=== PATIENT | female | born 1955 | race Caucasian/White ===

== ENCOUNTER 2017-06-02 10:45 | Emergency (ER) | payer OTHER ==
--- NOTE | 2017-06-02 11:15 | EDM.PDOC ---
ED HPI GENERAL MEDICAL PROBLEM - General Chief Complaint: Skin Complaint Stated Complaint: INFECTION Time Seen by Provider: 06/02/17 10:55 Source of Information: Reports: Patient History Limitations: Reports: No Limitations - History of Present Illness INITIAL COMMENTS - FREE TEXT/NARRATIVE: HISTORY AND PHYSICAL: History of present illness: Patient is a 62-year-old female that presents to the emergency room with complaints of a skin infection. States she fell onto her left side on Sunday, , resulting in an abrasion to her left forearm. Reports she did not lose consciousness with the fall. She is also concerned of a punch biopsy site to her left distal popliteal area by her ethnographer "checking for skin cancer". Reports that she usually takes amoxicillin for dental work, stating "I should have taken an antibiotic for these two skin issues as I don't heal well with the medicines I'm on for my RA". Reports she has been using baking soda soaks at home. Patient denies any fever or chills. Able to move all extremities without pain or difficulty. History of rheumatoid arthritis and psoriasis. Review of systems: As per history of present illness and below otherwise all systems reviewed and negative. Past medical history: As per history of present illness and as reviewed below otherwise noncontributory. Surgical history: As per history of present illness and as reviewed below otherwise noncontributory. Social history: No reported history of drug or alcohol abuse. Family history: As per history of present illness and as reviewed below otherwise noncontributory. Physical exam: Gen.: Nontoxic-appearing 62-year-old female. Able to speak in full sentences without shortness of breath. Answers questions appropriately. Alert and oriented. HEENT: Atraumatic, normocephalic, pupils reactive, negative for conjunctival pallor or scleral icterus, mucous membranes moist, throat clear, neck supple, nontender, trachea midline. Lungs: Clear to auscultation, breath sounds equal bilaterally, chest nontender. Heart: S1S2, regular, negative for clicks, rubs, or JVD. Abdomen: Soft, nondistended, nontender. Negative for masses or hepatosplenomegaly. Negative for costovertebral tenderness. Pelvis: Stable nontender. Genitourinary: Deferred. Rectal: Deferred. Skin: 2 circular abrasions noted, measuring approximately 3 cm diameter each, to left forearm with mild erythema surrounding them, no drainage noted. Punch biopsy site noted to left popliteal area with mild erythema noted, approximately 1 cm in diameter, no drainage noted. Extremities: Atraumatic, negative for cords or calf pain. Neurovascular unremarkable. Neuro: Awake, alert, oriented. Cranial nerves II through XII unremarkable. Cerebellum unremarkable. Motor and sensory unremarkable throughout. Exam nonfocal. Diagnostics: [] Therapeutics: Ice Impression: Cellulitis Definitive disposition and diagnosis as appropriate pending reevaluation and review of above. Onset Date: 05/28/17 Location: Reports: Upper Extremity, Left, Lower Extremity, Left - Related Data Allergies Allergy/AdvReac Type Severity Reaction Status Date / Time ceftriaxone Allergy Pain Verified 06/02/17 11:09 Sulfa (Sulfonamide Allergy Other Verified 06/02/17 11:09 Antibiotics) tramadol Allergy Hypertensio Verified 06/02/17 11:09 n Home Meds: Home Meds predniSONE [Prednisone] 1 tab PO DAILY 06/17/16 [History] Hydroxychloroquine Sulfate [Plaquenil] 200 mg PO BID 06/02/17 [History] Leflunomide 10 mg PO DAILY 06/02/17 [History] Lisinopril [Prinivil] 2.5 mg PO DAILY 06/02/17 [History] Past Medical History Genitourinary History: Reports: UTI, 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: Musculoskeletal History: Reports: Fibromyalgia, RA - Infectious Disease History Infectious Disease History: Reports: Chicken Pox, Measles, Mumps - Past Surgical History Female Surgical History: Reports: Section, Hysterectomy Musculoskeletal Surgical History: Reports: Knee Replacement Social & Family History - Family History Family Medical History: Noncontributory - Tobacco Use Smoking Status *Q: Never Smoker - Caffeine Use Caffeine Use: Reports: Coffee, Tea - Recreational Drug Use Recreational Drug Use: No ED ROS GENERAL - Review of Systems Review Of Systems: ROS reveals no pertinent complaints other than HPI. ED EXAM, SKIN/RASH Exam: See Below (See dictation) Departure - Departure Time of Disposition: 11:16 Disposition: Home, Self-Care 01 Condition: Good Clinical Impression: Cellulitis Qualifiers: Site of cellulitis: extremity Site of cellulitis of extremity: upper extremity Laterality: left Qualified Code(s): L03.114 - Cellulitis of left upper limb - Discharge Information Referrals: Colin Gonzalez MD [Primary Care Provider] - Additional Instructions: The following information is given to patients seen in the emergency department who are being discharged to home. This information is to outline your options for follow-up care. We provide all patients seen in our emergency department with a follow-up referral. The need for follow-up, as well as the timing and circumstances, are variable depending upon the specifics of your emergency department visit. If you don't have a primary care physician on staff, we will provide you with a referral. We always advise you to contact your personal physician following an emergency department visit to inform them of the circumstance of the visit and for follow-up with them and/or the need for any referrals to a consulting specialist. The emergency department will also refer you to a specialist when appropriate. This referral assures that you have the opportunity for follow-up care with a specialist. All of these measure are taken in an effort to provide you with optimal care, which includes your follow-up. Under all circumstances we always encourage you to contact your private physician who remains a resource for coordinating your care. When calling for follow-up care, please make the office aware that this follow-up is from your recent emergency room visit. If for any reason you are refused follow-up, please contact the emergency department at and asked to speak to the emergency department charge nurse. Talat [facility] [address] [place] [id number] 1. Please take your Amoxicillin as prescribed. 2. Follow-up with your primary care provider in the next 1-2 days. Return to the ED as needed as discussed.
[2017-06-02 11:32] VITALS: BP 139/83
== END 2017-06-02 11:28 | disposition home or self-care (01) ==
LOC: MW.ED 10:45
DX: L03.114 Cellulitis of left upper limb (principal); S50.812A Abrasion of left forearm, initial encounter; Z88.2 Allergy status to sulfonamides; Z88.5 Allergy status to narcotic agent; Z88.1 Allergy status to other antibiotic agents; Z79.899 Other long term (current) drug therapy; Z87.440 Personal history of urinary (tract) infections; Z90.710 Acquired absence of both cervix and uterus; Z96.659 Presence of unspecified artificial knee joint; W19.XXXA Unspecified fall, initial encounter
CPT/HCPCS: 99282

== ENCOUNTER 2017-06-03 04:09 | Emergency (ER) | payer OTHER ==
[2017-06-03] MEDS ORDERED: Ondansetron 4 MG/2 ML SDV IVPUSH ONE (04:27)
[2017-06-03] MEDS ORDERED: Ketorolac 30 MG/ML SDV IVPUSH ONE (04:27)
[2017-06-03 05:11] LABS: CHLORIDE,CL 107 mmol/L (98-110); SODIUM,NA 140 mmol/L (136-146)
--- NOTE | 2017-06-03 05:50 | EDM.PDOC ---
ED HPI GENERAL MEDICAL PROBLEM - General Chief Complaint: General Stated Complaint: INFECTION ON LEFT ELBOW Time Seen by Provider: 06/03/17 05:52 - History of Present Illness INITIAL COMMENTS - FREE TEXT/NARRATIVE: HISTORY AND PHYSICAL: History of present illness: Patient's a [id number] female with a history of rheumatoid arthritis and fibromyalgia who returns with a concern of pain was seen recently after fall on 05/28 and put on amoxicillin for possible cellulitis her most recent visit after that fall on 05/28 was yesterday on 06/02. Review of systems: As per history of present illness and below otherwise all systems reviewed and negative. Past medical history: As per history of present illness and as reviewed below otherwise noncontributory. Surgical history: As per history of present illness and as reviewed below otherwise noncontributory. Social history: No reported history of drug or alcohol abuse. Family history: As per history of present illness and as reviewed below otherwise noncontributory. Physical exam: HEENT: Atraumatic, normocephalic, pupils reactive, negative for conjunctival pallor or scleral icterus, mucous membranes moist, throat clear, neck supple, nontender, trachea midline. Lungs: Clear to auscultation, breath sounds equal bilaterally, chest nontender. Heart: S1S2, regular, negative for clicks, rubs, or JVD. Abdomen: Soft, nondistended, nontender. Negative for masses or hepatosplenomegaly. Negative for costovertebral tenderness. Pelvis: Stable nontender. Genitourinary: Deferred. Rectal: Deferred. Extremities: Patient is some swelling of her left elbow with ecchymosis and a minor abrasion this is not erythematous or particularly warm range of motion is limited secondary to pain neurovascular exams unremarkable Neuro: Awake, alert, oriented. Cranial nerves II through XII unremarkable. Cerebellum unremarkable. Motor and sensory unremarkable throughout. Exam nonfocal. Diagnostics: CBC CMP CT left elbow Therapeutics: Sling Impression: #1 left elbow pain #2 history of fall #3 history of rheumatoid arthritis/ fibromyalgia #4 rule out occult radial head fracture #5 rule out early superficial cellulitis Definitive disposition and diagnosis as appropriate pending reevaluation and review of above. Generalized Pain Score (Numeric/FACES): 10 - Related Data Allergies Allergy/AdvReac Type Severity Reaction Status Date / Time adalimumab [From Humira] Allergy Other Verified 06/03/17 04:27 amitriptyline Allergy Cannot Verified 06/03/17 04:27 Remember amlodipine [From Tribenzor] Allergy Cannot Verified 06/03/17 04:27 Remember cefaclor [From Ceclor] Allergy Hives Verified 06/03/17 04:27 ceftriaxone Allergy Pain Verified 06/02/17 11:09 codeine Allergy Hypertensio Verified 06/03/17 04:27 n doxycycline Allergy Hives Verified 06/03/17 04:27 etanercept [From Enbrel] Allergy Other Verified 06/03/17 04:27 gabapentin Allergy Hives Verified 06/03/17 04:27 hydrochlorothiazide Allergy Cannot Verified 06/03/17 04:27 [From Tribenzor] Remember hydroxychloroquine Allergy Cannot Verified 06/03/17 04:27 Remember leflunomide [From Arava] Allergy Cannot Verified 06/03/17 04:27 Remember lovastatin Allergy Cannot Verified 06/03/17 04:27 Remember olmesartan [From Tribenzor] Allergy Cannot Verified 06/03/17 04:27 Remember omeprazole Allergy Cannot Verified 06/03/17 04:27 Remember oxycodone Allergy Hypertensio Verified 06/03/17 04:27 n pantoprazole [From Protonix] Allergy Cannot Verified 06/03/17 04:27 Remember pravastatin Allergy Cannot Verified 06/03/17 04:27 Remember propoxyphene [From Darvon] Allergy Cannot Verified 06/03/17 04:27 Remember Sulfa (Sulfonamide Allergy Hives Verified 06/03/17 04:27 Antibiotics) tramadol Allergy Hypertensio Verified 06/02/17 11:09 n ustekinumab [From Stelara] Allergy Cannot Verified 06/03/17 04:27 Remember Home Meds: Home Meds predniSONE [Prednisone] 17.5 mg PO ASDIRECTED 06/17/16 [History] Hydroxychloroquine Sulfate [Plaquenil] 200 mg PO BID 06/02/17 [History] Leflunomide 10 mg PO DAILY 06/02/17 [History] Lisinopril [Prinivil] 10 mg PO DAILY 06/02/17 [History] Albuterol [Ventolin HFA] 2 puff INH Q4HR 06/03/17 [History] Amoxicillin 500 mg PO DAILY 06/03/17 [History] Benzonatate [Tessalon Perle] 200 mg PO TID 06/03/17 [History] Cetirizine [ZyrTEC] 10 mg PO DAILY PRN 06/03/17 [History] Cholecalciferol (Vitamin D3) [Vitamin D3] 5,000 units PO DAILY 06/03/17 [History ] Codeine Sulfate 0 mg PO Q4HR PRN 06/03/17 [History] Famotidine 40 mg PO BID 06/03/17 [History] Folic Acid 1 mg PO BID 06/03/17 [History] Ipratropium [Atrovent 0.06% Nasal Randolph] 2 spray INH TID 06/03/17 [History] Lansoprazole [Prevacid] 30 mg PO DAILY 06/03/17 [History] Loratadine [Claritin] 10 mg PO DAILY PRN 06/03/17 [History] Past Medical History HEENT History: Reports: Impaired Vision Other HEENT History: wears glasses Cardiovascular History: Reports: Hypertension Gastrointestinal History: Reports: None Genitourinary History: Reports: UTI, Recurrent 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: Reports: Musculoskeletal History: Reports: Fibromyalgia, RA Immunologic History: Reports: Immunosuppression Other Oncologic History: never been diagnosed with cancer but reports right breast biopsy and left leg biopsy Dermatologic History: Reports: Psoriasis - Infectious Disease History Infectious Disease History: Reports: Chicken Pox, Measles, Mumps - Past Surgical History Other HEENT Surgeries/Procedures: nasal surgery Cardiovascular Surgical History: Reports: None GI Surgical History: Reports: Appendectomy Female Surgical History: Reports: Section, Hysterectomy, Tubal Ligation Musculoskeletal Surgical History: Reports: Knee Replacement Other Musculoskeletal Surgeries/Procedures:: fused ankle, left Oncologic Surgical History: Reports: None Social & Family History - Family History Family Medical History: Noncontributory - Tobacco Use Smoking Status *Q: Never Smoker Second Hand Smoke Exposure: No - Caffeine Use Caffeine Use: Reports: Coffee Caffeine Use Comment: 1-2cups/day - Recreational Drug Use Recreational Drug Use: No ED ROS GENERAL - Review of Systems Review Of Systems: ROS reveals no pertinent complaints other than HPI. ED EXAM, GENERAL - Physical Exam Exam: See Below (See dictation) Course - Vital Signs Text/Narrative:: I discussed with patient possible occult radial head fracture I discussed with patient her extensive list of allergies and her recent Rx with amoxicillin for possible superficial cellulitis and the need for close follow-up and monitoring I discussed with patient her history of rheumatoid arthritis/fibromyalgia and the difficulty with pain management. Patient will be treated in a sling so as to mobilize yet still be able to monitor any evidence of infection or increased swelling redness erythema warmth as discussed she'll be given orthopedic surgery follow-up with on Sunday she is to follow-up with her primary medical doctor ASP also was discussed and return as needed as discussed Last Recorded V/S: Last Vital Signs Temp 36.1 C 06/03/17 04:14 Pulse 94 06/03/17 04:14 Resp 19 06/03/17 04:14 BP 182/101 H 06/03/17 04:14 Pulse Ox 97 06/03/17 04:14 - Orders/Labs/Meds Orders: Active Orders 24 hr Category Date Time Status Elbow wo Cont Lt [CT] Stat Exams 06/03/17 04:26 Taken Labs: Laboratory Tests 06/03/17 06/03/17 Range/Units 04:40 04:40 WBC 10.06 (4.0-11.0) K/uL RBC 4.56 (4.30-5.90) M/uL Hgb 14.9 (12.0-16.0) g/dL Hct 45.4 (36.0-46.0) % MCV 99.6 H (80.0-98.0) fL MCH 32.7 H (27.0-32.0) pg MCHC 32.8 (31.0-37.0) g/dL RDW Std Deviation 49.4 (28.0-62.0) fl RDW Coeff of Deedee 14 (11.0-15.0) % Plt Count 291 (150-400) K/uL MPV 9.40 (7.40-12.00) fL Neut % (Auto) 57.0 (48.0-80.0) % Lymph % (Auto) 32.7 (16.0-40.0) % Davison % (Auto) 8.3 (0.0-15.0) % Eos % (Auto) 1.7 (0.0-7.0) % Baso % (Auto) 0.3 (0.0-1.5) % Neut # (Auto) 5.7 (1.4-5.7) K/uL Lymph # (Auto) 3.3 H (0.6-2.4) K/uL Davison # (Auto) 0.8 (0.0-0.8) K/uL Eos # (Auto) 0.2 (0.0-0.7) K/uL Baso # (Auto) 0.0 (0.0-0.1) K/uL Nucleated RBC % 0.0 /100WBC Nucleated RBCs # 0 K/uL Sodium 140 (136-146) mmol/L Potassium 4.1 (3.5-5.1) mmol/L Chloride 107 (98-110) mmol/L Carbon Dioxide 20 L (21-31) mmol/L BUN 11 (6.0-23.0) mg/dL Creatinine 0.8 (0.6-1.5) mg/dL Est Cr Clr Drug Dosing 67.29 mL/min Estimated GFR (MDRD) > 60.0 ml/min Glucose 133 H (60-110) mg/dL Calcium 9.4 (8.8-10.8) mg/dL Total Bilirubin 0.2 (0.1-1.5) mg/dL AST 27 (5-40) IU/L ALT 27 (8-54) IU/L Alkaline Phosphatase 191 H (40-150) Total Protein 7.3 (6.0-8.0) g/dL Albumin 3.6 (3.4-4.8) g/dL Globulin 3.7 H (2.0-3.5) g/dL Albumin/Globulin Ratio 1.0 L (1.3-2.8) Meds: Medications Discontinued Medications Generic Name Dose Route Start Last Admin Trade Name Brayden PRN Reason Stop Dose Admin Ketorolac Tromethamine 30 mg 06/03/17 04:27 06/03/17 04:45 Toradol IVPUSH 06/03/17 04:28 30 mg ONETIME ONE Administration Ondansetron HCl 4 mg 06/03/17 04:27 06/03/17 04:43 Zofran IVPUSH 06/03/17 04:28 4 mg ONETIME ONE Administration Departure - Departure Time of Disposition: 05:51 Disposition: Home, Self-Care 01 Condition: Good Clinical Impression: Elbow injury - Discharge Information Referrals: PCP,None [Primary Care Provider] - Additional Instructions: The following information is given to patients seen in the emergency department who are being discharged to home. This information is to outline your options for follow-up care. We provide all patients seen in our emergency department with a follow-up referral. The need for follow-up, as well as the timing and circumstances, are variable depending upon the specifics of your emergency department visit. If you don't have a primary care physician on staff, we will provide you with a referral. We always advise you to contact your personal physician following an emergency department visit to inform them of the circumstance of the visit and for follow-up with them and/or the need for any referrals to a consulting specialist. The emergency department will also refer you to a specialist when appropriate. This referral assures that you have the opportunity for followup care with a specialist. All of these measure are taken in an effort to provide you with optimal care, which includes your followup. Under all circumstances we always encourage you to contact your private physician who remains a resource for coordinating your care. When calling for followup care, please make the office aware that this follow-up is from your recent emergency room visit. If for any reason you are refused follow-up, please contact the [facility] emergency department at and asked to speak to the emergency department charge nurse. [facility] Specialty Care - Orthopedic Clinic Professional [address], [address] [place] [address] Continue current medications sling as directed follow-up primary medical doctor HILDA and orthopedic clinic above is discussed return as needed as discussed - My Orders Last 24 Hours: My Active Orders 06/03/17 04:26 Elbow wo Cont Lt [CT] Stat - Assessment/Plan Last 24 Hours: My Active Orders 06/03/17 04:26 Elbow wo Cont Lt [CT] Stat
[2017-06-03 06:09] VITALS: BP 147/76
--- NOTE | 2017-06-05 16:14 | CT ---
EXAM DATE: 06/03/17 PATIENT'S AGE: 62 Patient: COLLIN BEVERLY Facility: [place], [place] Site . Site : [id number] Study: CT Extremity Left [id number] elbow-06/03/2017 5:21:29 AM Ordering Physician: Doctor Madrigal Final Report: Indication: Pain status post fall Technique: A noncontrast CT scan of the left elbow. Coronal and sagittal reformats were reviewed. Comparison: None available Findings: There is no evidence of an acute displaced fracture. There are degenerative changes in the elbow joint with joint space narrowing and osteophyte formation in all compartments. There is an elbow joint effusion with elevation of the anterior and posterior fat pads. There is soft tissue swelling along the dorsal aspect of the elbow and proximal forearm. Impression: No acute displaced fracture is seen. Degenerative changes. A joint effusion. If a radio- occult fracture is suspected, further evaluation with MRI should be considered. Dorsal soft tissue swelling. Dictated by Dino Hardin MD @ 06/03/2017 5:45:00 AM Dictated by: Dino Hardin MD @ 06/03/2017 05:45:05 (Electronic Signature) Report Signed by Proxy. YI
== END 2017-06-03 06:04 | disposition home or self-care (01) ==
LOC: MW.ED 04:09
DX: S50.02XA Contusion of left elbow, initial encounter (principal); S50.312A Abrasion of left elbow, initial encounter; I10 Essential (primary) hypertension; Z87.440 Personal history of urinary (tract) infections; Z90.49 Acquired absence of other specified parts of digestive tract; Z90.710 Acquired absence of both cervix and uterus; Z88.5 Allergy status to narcotic agent; Z88.1 Allergy status to other antibiotic agents; Z88.8 Allergy status to other drugs, medicaments and biological substances; Z88.2 Allergy status to sulfonamides; Z79.899 Other long term (current) drug therapy; Z87.39 Personal history of other diseases of the musculoskeletal system and connective tissue; W19.XXXA Unspecified fall, initial encounter
CPT/HCPCS: 36415; 73200; 80053; 85025; 96374; 96375; 99284; J1885; J2405; 99283

== ENCOUNTER 2018-02-07 13:07 | Emergency (ER) | payer OTHER ==
--- NOTE | 2018-02-07 13:59 | EDM.PDOC ---
ED HPI GENERAL MEDICAL PROBLEM - General Chief Complaint: Skin Complaint Stated Complaint: RIGHT FOOT BLISTERS Time Seen by Provider: 02/07/18 13:58 Source of Information: Reports: Patient History Limitations: Reports: No Limitations - History of Present Illness INITIAL COMMENTS - FREE TEXT/NARRATIVE: HISTORY AND PHYSICAL: History of present illness: Patient is a 63-year-old female who presents to the emergency room with complaints of blisterlike sores to her right. She states she noticed a few blisters to the foot on Sunday and has progressively gotten worse. She does see a firer automatic stoker for neck pustule or psoriasis. Told her firer automatic stoker on Sunday and exchanged photo for somewhat demented evaluation. She was placed on oral prednisone Sunday but has not noticed any. She re-spoke with her firer automatic stoker who states this appears to be a Shingles outbreak. States the pain is a sharp burning discomfort, localized to the blistered area. Denies any fever, chills, chest pain or shortness of breath. Denies any abdominal pain, nausea, vomiting, diarrhea or constipation. Patient is fully ambulatory without difficulty or deficits. Review of systems: As per history of present illness and below otherwise all systems reviewed and negative. Past medical history: As per history of present illness and as reviewed below otherwise noncontributory. Surgical history: As per history of present illness and as reviewed below otherwise noncontributory. Social history: No reported history of drug or alcohol abuse. Family history: As per history of present illness and as reviewed below otherwise noncontributory. Physical exam: General: Developed and well-nourished 63-year-old female. Alert and oriented. Nontoxic appearing and in no acute distress. HEENT: Atraumatic, normocephalic, pupils equal and reactive bilaterally, negative for conjunctival pallor or scleral icterus, mucous membranes moist, throat clear, neck supple, nontender, trachea midline. No drooling or trismus noted. No meningeal signs Lungs: Clear to auscultation, breath sounds equal bilaterally, chest nontender. Heart: S1S2, regular rate and rhythm without overt murmur Abdomen: Soft, nondistended, nontender. Negative for masses or hepatosplenomegaly. Negative for costovertebral tenderness. Pelvis: Stable nontender. Genitourinary: Deferred. Rectal: Deferred. Skin: Several blister like lesions noted to the oral surface of the right foot. Mild erythema noted around these blisters. No lesions or rashes noted. Extremities: Atraumatic, negative for cords or calf pain. Neurovascular unremarkable. Neuro: Awake, alert, oriented. Cranial nerves II through XII unremarkable. Cerebellum unremarkable. Motor and sensory unremarkable throughout. Exam nonfocal. Notes: A viral culture will be obtained from the pustular fluid. 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 She states she does have an appointment to see her on Sunday. Discussed signs and symptoms that would prompt her to come back to the emergency room or seek medical treatment such as but not limited to increased erythema, fever, and/or any new or worsening symptoms. Will place her on Acyclovir 3 times daily instead of the 5 times daily due to her multitude of health problems. She states she does have moderate to severe pain. She has multiple allergies to medications. She is willing to take some Tylenol with Codeine dispense 20, no refill. We did discuss her high blood pressure reading today. She declines a further workup or evaluation of this as she states that "it gets high when I'm not feeling well". She states she will follow up with her primary care provider Diagnostics: Viral [employer] Therapeutics: [] Impression: Shingles, right foot Plan: 1. Please take the acyclovir one tab 3 times daily 7 days. 2. Tylenol #3 as needed for pain. May cause drowsiness, so do not take while driving or needing to be functioning outside the house. 3. Continue to monitor the site or increased erythema or any of the other symptoms discussed. 4. Follow-up with your firer automatic stoker as we discussed. Turn to the ED as needed and as discussed. Definitive disposition and diagnosis as appropriate pending reevaluation and review of above. Duration: Day(s): Location: Reports: Lower Extremity, Right Right Feet Pain Score (Numeric/FACES): 9 - Related Data Allergies Allergy/AdvReac Type Severity Reaction Status Date / Time adalimumab [From Humira] Allergy Other Verified 02/07/18 13:58 amitriptyline Allergy Cannot Verified 02/07/18 13:58 Remember amlodipine [From Tribenzor] Allergy Cannot Verified 02/07/18 13:58 Remember cefaclor [From Ceclor] Allergy Hives Verified 02/07/18 13:58 ceftriaxone Allergy Pain Verified 02/07/18 13:58 codeine Allergy Hypertensio Verified 02/07/18 13:58 n doxycycline Allergy Hives Verified 02/07/18 13:58 etanercept [From Enbrel] Allergy Other Verified 02/07/18 13:58 gabapentin Allergy Hives Verified 02/07/18 13:58 hydrochlorothiazide Allergy Cannot Verified 02/07/18 13:58 [From Tribenzor] Remember hydroxychloroquine Allergy Cannot Verified 02/07/18 13:58 Remember leflunomide [From Arava] Allergy Cannot Verified 02/07/18 13:58 Remember lovastatin Allergy Cannot Verified 02/07/18 13:58 Remember olmesartan [From Tribenzor] Allergy Cannot Verified 02/07/18 13:58 Remember omeprazole Allergy Cannot Verified 02/07/18 13:58 Remember oxycodone Allergy Hypertensio Verified 02/07/18 13:58 n pantoprazole [From Protonix] Allergy Cannot Verified 02/07/18 13:58 Remember pravastatin Allergy Cannot Verified 02/07/18 13:58 Remember propoxyphene [From Darvon] Allergy Cannot Verified 02/07/18 13:58 Remember Sulfa (Sulfonamide Allergy Hives Verified 02/07/18 13:58 Antibiotics) tramadol Allergy Hypertensio Verified 02/07/18 13:58 n ustekinumab [From Stelara] Allergy Cannot Verified 02/07/18 13:58 Remember Home Meds: Home Meds predniSONE [Prednisone] 12.5 mg PO ASDIRECTED 06/17/16 [History] Hydroxychloroquine Sulfate [Plaquenil] 200 mg PO BID 06/02/17 [History] Leflunomide 10 mg PO DAILY 06/02/17 [History] Lisinopril [Prinivil] 10 mg PO DAILY 06/02/17 [History] Albuterol [Ventolin HFA] 2 puff INH Q4HR 06/03/17 [History] Amoxicillin 500 mg PO DAILY 06/03/17 [History] Benzonatate [Tessalon Perle] 200 mg PO TID 06/03/17 [History] Cetirizine [ZyrTEC] 10 mg PO DAILY PRN 06/03/17 [History] Cholecalciferol (Vitamin D3) [Vitamin D3] 5,000 units PO DAILY 06/03/17 [History ] Codeine Sulfate 0 mg PO Q4HR PRN 06/03/17 [History] Famotidine 40 mg PO BID 06/03/17 [History] Folic Acid 1 mg PO BID 06/03/17 [History] Ipratropium [Atrovent 0.06% Nasal [place]] 2 spray INH TID 06/03/17 [History] Lansoprazole [Prevacid] 30 mg PO DAILY 06/03/17 [History] Loratadine [Claritin] 10 mg PO DAILY PRN 06/03/17 [History] Dexlansoprazole [Dexilant] 30 mg PO DAILY 02/07/18 [History] Past Medical History HEENT History: Reports: Impaired Vision Other HEENT History: wears glasses Cardiovascular History: Reports: Hypertension Gastrointestinal History: Reports: None Genitourinary History: Reports: UTI, Recurrent 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: Musculoskeletal History: Reports: Fibromyalgia, RA Immunologic History: Reports: Immunosuppression Other Oncologic History: never been diagnosed with cancer but reports right breast biopsy and left leg biopsy Dermatologic History: Reports: Psoriasis - Infectious Disease History Infectious Disease History: Reports: Chicken Pox, Measles, Mumps - Past Surgical History Other HEENT Surgeries/Procedures: nasal surgery Cardiovascular Surgical History: Reports: None GI Surgical History: Reports: Appendectomy Female Surgical History: Reports: Section, Hysterectomy, Tubal Ligation Musculoskeletal Surgical History: Reports: Knee Replacement Other Musculoskeletal Surgeries/Procedures:: fused ankle, left Oncologic Surgical History: Reports: None Social & Family History - Family History Family Medical History: Noncontributory - Caffeine Use Caffeine Use: Reports: Coffee Caffeine Use Comment: 1-2cups/day ED ROS GENERAL - Review of Systems Review Of Systems: ROS reveals no pertinent complaints other than HPI. ED EXAM, SKIN/RASH Exam: See Below (See dictation) Course - Vital Signs Last Recorded V/S: Last Vital Signs Temp 97.6 F 02/07/18 13:50 Pulse 98 02/07/18 13:50 Resp 20 02/07/18 13:50 BP 195/111 H 02/07/18 13:50 Pulse Ox 94 L 02/07/18 13:50 - Orders/Labs/Meds Orders: Active Orders 24 hr Category Date Time Status VIRAL CULTURE, GENERAL Stat Lab 02/07/18 14:03 Ordered Departure - Departure Time of Disposition: 14:24 Disposition: Home, Self-Care 01 Clinical Impression: Shingles Qualifiers: Herpes zoster complications: without complications Qualified Code(s): B02.9 - Zoster without complications - Discharge Information Instructions: Shingles, [id number]-Ihck Referrals: Colin Gonzalez MD [Primary Care Provider] - Forms: ED Department Discharge Additional Instructions: The following information is given to patients seen in the emergency department who are being discharged to home. This information is to outline your options for follow-up care. We provide all patients seen in our emergency department with a follow-up referral. The need for follow-up, as well as the timing and circumstances, are variable depending upon the specifics of your emergency department visit. If you don't have a primary care physician on staff, we will provide you with a referral. We always advise you to contact your personal physician following an emergency department visit to inform them of the circumstance of the visit and for follow-up with them and/or the need for any referrals to a consulting specialist. The emergency department will also refer you to a specialist when appropriate. This referral assures that you have the opportunity for follow-up care with a specialist. All of these measure are taken in an effort to provide you with optimal care, which includes your follow-up. Under all circumstances we always encourage you to contact your private physician who remains a resource for coordinating your care. When calling for follow-up care, please make the office aware that this follow-up is from your recent emergency room visit. If for any reason you are refused follow-up, please contact the [facility] Emergency Department at and asked to speak to the emergency department charge nurse. [facility] Primary [facility] [address] [place] [id number] 1. Please take the acyclovir one tab 3 times daily 7 days. 2. Tylenol #3 as needed for pain. May cause drowsiness, so do not take while driving or needing to be functioning outside the house. 3. Continue to monitor the site or increased erythema or any of the other symptoms discussed. 4. Follow-up with your firer automatic stoker as we discussed. Turn to the ED as needed and as discussed. - My Orders Last 24 Hours: My Active Orders 02/07/18 14:03 VIRAL CULTURE, GENERAL Stat - Assessment/Plan Last 24 Hours: My Active Orders 02/07/18 14:03 VIRAL CULTURE, GENERAL Stat
[2018-02-07 14:38] VITALS: BP 154/86
== END 2018-02-07 14:35 | disposition home or self-care (01) ==
LOC: MW.ED 13:07
DX: B02.9 Zoster without complications (principal); I10 Essential (primary) hypertension; Z88.8 Allergy status to other drugs, medicaments and biological substances; Z88.1 Allergy status to other antibiotic agents; Z88.5 Allergy status to narcotic agent; Z88.2 Allergy status to sulfonamides; Z79.899 Other long term (current) drug therapy
CPT/HCPCS: 87252; 99283

== ENCOUNTER 2018-02-09 21:43 | Emergency (ER) | payer OTHER ==
[2018-02-09 22:23] VITALS: BP 155/103
--- NOTE | 2018-02-09 22:52 | EDM.PDOC ---
ED HPI GENERAL MEDICAL PROBLEM - General Chief Complaint: Skin Complaint Stated Complaint: SORES ON RIGHT FOOT Time Seen by Provider: 02/09/18 22:35 - History of Present Illness INITIAL COMMENTS - FREE TEXT/NARRATIVE: HISTORY AND PHYSICAL: History of present illness: The patient is a 63-year-old female who presents with persistent pain redness and no drainage from lesions noted on her right foot for which she was seen 2 days ago. At that point it was noted the patient has a history of pustular psoriasis which usually presents on the soles of her feet and this was an atypical location so the diagnosis of shingles was entertained and she was started on acyclovir and Tylenol with codeine. Patient has multiple allergies and has issues with pain medication and says that she cannot take most pain meds but she does not feel that the Tylenol with codeine is working. She said one of the lesions ruptured and fluid came out and she feels like the pain is originating at her lateral right foot and shooting up her leg. She has no systemic complaints of fever chills nausea or vomiting. She has had no injury to the area and no neurosensory changes in the foot. There is no streaking up the leg or calf pain or tenderness. Patient has an appointment with her preanalytics team lead on Sunday but because of the pain she is here for reevaluation. The patient says that most pain medication makes her blood pressure elevated. She says her blood pressure today is elevated because of the discomfort. 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 Review of systems: As per history of present illness and below otherwise all systems reviewed and negative. Past medical history: As per history of present illness and as reviewed below otherwise noncontributory. Surgical history: As per history of present illness and as reviewed below otherwise noncontributory. Social history: No reported history of drug or alcohol abuse. Family history: As per history of present illness and as reviewed below otherwise noncontributory. Physical exam: General: Well-developed well-nourished female in vital signs are noted by me. HEENT: Atraumatic, normocephalic, negative for conjunctival pallor or scleral icterus, mucous membranes moist, throat clear, neck supple, nontender, trachea midline. Lungs: Clear to auscultation, breath sounds equal bilaterally, chest nontender. Heart: S1S2, regular, negative for clicks, rubs, or JVD. Abdomen: Soft, nondistended, nontender. Negative for masses or hepatosplenomegaly. Negative for costovertebral tenderness. Pelvis: Stable nontender. Genitourinary: Deferred. Rectal: Deferred. Extremities: Atraumatic, negative for cords or calf pain. Neurovascular unremarkable. At the right foot laterally there is an oval-like area of erythema with multiple pustules that are indurated and not fluctuant and purplish hue to the surround of the pustules. There is no crepitus bony deformities or streaking up the leg and there is discrete tenderness when I palpate this area. The remainder of the foot is without lesions and no lesions are seen elsewhere on the body Neuro: Awake, alert, oriented. Cranial nerves II through XII unremarkable. Cerebellum unremarkable. Motor and sensory unremarkable throughout. Exam nonfocal. Diagnostics: CBC CMP foot x-ray right Therapeutics: Toradol Ativan She tells me that she has multiple allergies and cannot take gabapentin she can' t take narcotics tramadol and she prefers a lidocaine patch but unfortunately we do not have that in the hospital. She is willing to try a dose of Toradol and I will prescribe her the lidocaine patches for home. I will also offer her some low-dose Valium. I strongly encouraged her to keep her follow-up with dermatology and will also add an antibiotic as this looks like there is some superinfection Patient states that the Toradol has helped but she still having some nerve spasm -like sensations. I will give her a dose of Ativan here and send her home on antibiotics Ativan and lidocaine patches. Impression: Right foot lesions/infection Definitive disposition and diagnosis as appropriate pending reevaluation and review of above. Right Feet Pain Score (Numeric/FACES): 9 - Related Data Allergies Allergy/AdvReac Type Severity Reaction Status Date / Time adalimumab [From Humira] Allergy Other Verified 02/09/18 22:23 amitriptyline Allergy Cannot Verified 02/09/18 22:23 Remember amlodipine [From Tribenzor] Allergy Cannot Verified 02/09/18 22:23 Remember cefaclor [From Ceclor] Allergy Hives Verified 02/09/18 22:23 ceftriaxone Allergy Pain Verified 02/09/18 22:23 codeine Allergy Hypertensio Verified 05/12/18 22:23 n doxycycline Allergy Hives Verified 02/09/18 22:23 etanercept [From Enbrel] Allergy Other Verified 02/09/18 22:23 gabapentin Allergy Hives Verified 02/09/18 22:23 hydrochlorothiazide Allergy Cannot Verified 02/09/18 22:23 [From Tribenzor] Remember hydroxychloroquine Allergy Cannot Verified 02/09/18 22:23 Remember leflunomide [From Arava] Allergy Cannot Verified 02/09/18 22:23 Remember lovastatin Allergy Cannot Verified 02/09/18 22:23 Remember olmesartan [From Tribenzor] Allergy Cannot Verified 02/09/18 22:23 Remember omeprazole Allergy Cannot Verified 02/09/18 22:23 Remember oxycodone Allergy Hypertensio Verified 02/09/18 22:23 n pantoprazole [From Protonix] Allergy Cannot Verified 02/09/18 22:23 Remember pravastatin Allergy Cannot Verified 02/09/18 22:23 Remember propoxyphene [From Darvon] Allergy Cannot Verified 02/09/18 22:23 Remember Sulfa (Sulfonamide Allergy Hives Verified 02/09/18 22:23 Antibiotics) tramadol Allergy Hypertensio Verified 02/09/18 22:23 n ustekinumab [From Stelara] Allergy Cannot Verified 02/09/18 22:23 Remember Home Meds: Home Meds predniSONE [Prednisone] 12.5 mg PO ASDIRECTED 06/17/16 [History] Hydroxychloroquine Sulfate [Plaquenil] 200 mg PO BID 06/02/17 [History] Leflunomide 10 mg PO DAILY 06/02/17 [History] Lisinopril [Prinivil] 10 mg PO DAILY 06/02/17 [History] Albuterol [Ventolin HFA] 2 puff INH Q4HR 06/03/17 [History] Amoxicillin 500 mg PO DAILY 06/03/17 [History] Benzonatate [Tessalon Perle] 200 mg PO TID 06/03/17 [History] Cetirizine [ZyrTEC] 10 mg PO DAILY PRN 06/03/17 [History] Cholecalciferol (Vitamin D3) [Vitamin D3] 5,000 units PO DAILY 06/03/17 [History ] Codeine Sulfate 0 mg PO Q4HR PRN 06/03/17 [History] Famotidine 40 mg PO BID 06/03/17 [History] Folic Acid 1 mg PO BID 06/03/17 [History] Ipratropium [Atrovent 0.06% Nasal [place]] 2 spray INH TID 06/03/17 [History] Lansoprazole [Prevacid] 30 mg PO DAILY 06/03/17 [History] Loratadine [Claritin] 10 mg PO DAILY PRN 06/03/17 [History] Dexlansoprazole [Dexilant] 30 mg PO DAILY 02/07/18 [History] Past Medical History HEENT History: Reports: Impaired Vision Other HEENT History: wears glasses Cardiovascular History: Reports: Hypertension Gastrointestinal History: Reports: None Genitourinary History: Reports: UTI, Recurrent 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: Musculoskeletal History: Reports: Fibromyalgia, RA Immunologic History: Reports: Immunosuppression Other Oncologic History: never been diagnosed with cancer but reports right breast biopsy and left leg biopsy Dermatologic History: Reports: Psoriasis - Infectious Disease History Infectious Disease History: Reports: Chicken Pox, Measles, Mumps - Past Surgical History Other HEENT Surgeries/Procedures: nasal surgery Cardiovascular Surgical History: Reports: None GI Surgical History: Reports: Appendectomy Female Surgical History: Reports: Section, Hysterectomy, Tubal Ligation Musculoskeletal Surgical History: Reports: Knee Replacement Other Musculoskeletal Surgeries/Procedures:: fused ankle, left Oncologic Surgical History: Reports: None Social & Family History - Family History Family Medical History: Noncontributory - Tobacco Use Smoking Status *Q: Former Smoker Used Tobacco, but Quit: No - Caffeine Use Caffeine Use: Reports: Coffee Caffeine Use Comment: 1-2cups/day - Alcohol Use Days Per Week of Alcohol Use: 1 Number of Drinks Per Day: 3 Total Drinks Per Week: 3 - Recreational Drug Use Recreational Drug Use: No ED ROS GENERAL - Review of Systems Review Of Systems: ROS reveals no pertinent complaints other than HPI. ED EXAM, SKIN/RASH Exam: See Below (see dictation) Course - Vital Signs Last Recorded V/S: Last Vital Signs Temp 36.9 C 02/09/18 22:22 Pulse 80 02/09/18 22:22 Resp 20 02/09/18 22:22 BP 155/103 H 02/09/18 22:22 Pulse Ox 97 02/09/18 22:22 - Orders/Labs/Meds Orders: Active Orders 24 hr Category Date Time Status Foot 2V Rt [CR] Stat Exams 02/09/18 22:48 Taken LORazepam [Ativan] Med 02/10/18 00:12 Once 1 mg PO ONETIME ONE Labs: Laboratory Tests 02/09/18 02/09/18 Range/Units 23:02 23:02 WBC 11.20 H (4.0-11.0) K/uL RBC 4.56 (4.30-5.90) M/uL Hgb 14.4 (12.0-16.0) g/dL Hct 43.0 (36.0-46.0) % MCV 94.3 (80.0-98.0) fL MCH 31.6 (27.0-32.0) pg MCHC 33.5 (31.0-37.0) g/dL RDW Std Deviation 47.9 (28.0-62.0) fl RDW Coeff of [place] 14 (11.0-15.0) % Plt Count 314 (150-400) K/uL MPV 9.30 (7.40-12.00) fL Neut % (Auto) 63.9 (48.0-80.0) % Lymph % (Auto) 22.1 (16.0-40.0) % [place] % (Auto) 12.3 (0.0-15.0) % Eos % (Auto) 1.3 (0.0-7.0) % Baso % (Auto) 0.4 (0.0-1.5) % Neut # (Auto) 7.2 H (1.4-5.7) K/uL Lymph # (Auto) 2.5 H (0.6-2.4) K/uL [place] # (Auto) 1.4 H (0.0-0.8) K/uL Eos # (Auto) 0.2 (0.0-0.7) K/uL Baso # (Auto) 0.0 (0.0-0.1) K/uL Nucleated RBC % 0.0 /100WBC Nucleated RBCs # 0 K/uL Sodium 138 (136-145) mmol/L Potassium 3.5 (3.5-5.1) mmol/L Chloride 103 (98-107) mmol/L Carbon Dioxide 27.4 (21.0-32.0) mmol/L BUN 13 (7.0-18.0) mg/dL Creatinine 1.0 (0.6-1.0) mg/dL Est Cr Clr Drug Dosing 53.16 mL/min Estimated GFR (MDRD) 56.4 ml/min Glucose 133 H (74-106) mg/dL Calcium 9.2 (8.5-10.1) mg/dL Total Bilirubin 0.3 (0.2-1.0) mg/dL AST 12 L (15-37) IU/L ALT 20 (14-63) IU/L Alkaline Phosphatase 138 H (46-116) U/L Total Protein 7.3 (6.4-8.2) g/dL Albumin 3.1 L (3.4-5.0) g/dL Globulin 4.2 H (2.0-3.5) g/dL Albumin/Globulin Ratio 0.7 L (1.3-2.8) Meds: Medications Discontinued Medications Generic Name Dose Route Start Last Admin Trade Name Freq PRN Reason Stop Dose Admin Ketorolac Tromethamine 60 mg 02/09/18 22:53 02/09/18 23:17 Toradol IM 02/09/18 22:54 60 mg ONETIME ONE Administration Departure - Departure Time of Disposition: 00:13 Disposition: Home, Self-Care 01 Condition: Good Clinical Impression: Foot infection - Discharge Information Referrals: Colin Gonzalez MD [Primary Care Provider] - Forms: ED Department Discharge Additional Instructions: The following information is given to patients seen in the emergency department who are being discharged to home. This information is to outline your options for follow-up care. We provide all patients seen in our emergency department with a follow-up referral. The need for follow-up, as well as the timing and circumstances, are variable depending upon the specifics of your emergency department visit. If you don't have a primary care physician on staff, we will provide you with a referral. We always advise you to contact your personal physician following an emergency department visit to inform them of the circumstance of the visit and for follow-up with them and/or the need for any referrals to a consulting specialist. The emergency department will also refer you to a specialist when appropriate. This referral assures that you have the opportunity for followup care with a specialist. All of these measure are taken in an effort to provide you with optimal care, which includes your followup. Under all circumstances we always encourage you to contact your private physician who remains a resource for coordinating your care. When calling for followup care, please make the office aware that this follow-up is from your recent emergency room visit. If for any reason you are refused follow-up, please contact the [facility] emergency department at and ask to speak to the emergency department charge nurse. [facility] Primary care- Internal Medicine and Family [address] [id number] Please keep your appointment with the preanalytics team lead on Sunday and continue the acyclovir that you have and add the clindamycin you have been prescribed the [employer] Meds. Take Ativan as needed for nerve like pain and also use the Toradol and lidocaine patches for pain management. Return to ER as needed and as discussed - My Orders Last 24 Hours: My Active Orders 02/09/18 22:48 Foot 2V Rt [CR] Stat 02/10/18 00:12 LORazepam [Ativan] 1 mg PO ONETIME ONE - Assessment/Plan Last 24 Hours: My Active Orders 02/09/18 22:48 Foot 2V Rt [CR] Stat 02/10/18 00:12 LORazepam [Ativan] 1 mg PO ONETIME ONE
[2018-02-09] MEDS ORDERED: Ketorolac 60 MG/2 ML SDV IM ONE (22:53)
[2018-02-10] MEDS ORDERED: LORazepam 1 MG Tab PO ONE (00:12)
--- NOTE | 2018-02-11 19:54 | CR ---
EXAM DATE: 02/09/18 PATIENT'S AGE: 63 Patient: COLLIN BEVERLY Facility: [place], [place] Site . Site : 1955 Study: XRay Extremity Right foot [id number]/12/2018 11:22:32 PM Ordering Physician: Traci Gillespie Final Report: INDICATION: Foot pain, sores oozing on lateral side of right foot TECHNIQUE: Foot radiograph 2 views right COMPARISON: None FINDINGS: Bones: No acute fractures or aggressive bone lesions are identified. No evidence of osteomyelitis is seen. 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 No significant ankle effusion is seen. Soft tissue: Unremarkable. No radiopaque foreign bodies are seen. IMPRESSION: 1. No evidence of osteomyelitis is seen. If there is a high clinical index of suspicion, further evaluation with contrast-enhanced MRI or dual-isotope bone scan is recommended, given their higher sensitivities. Dictated by Grant Ni MD @ 02/09/2018 11:23:34 PM Dictated by: Grant Ni MD @ 02/09/2018 23:23:40 (Electronic Signature) Report Signed by Proxy. YI
== END 2018-02-10 00:28 | disposition home or self-care (01) ==
LOC: MW.ED 21:43
DX: L08.9 Local infection of the skin and subcutaneous tissue, unspecified (principal); M79.671 Pain in right foot; I10 Essential (primary) hypertension; Z88.8 Allergy status to other drugs, medicaments and biological substances; Z88.5 Allergy status to narcotic agent; Z88.1 Allergy status to other antibiotic agents; Z88.2 Allergy status to sulfonamides; Z79.899 Other long term (current) drug therapy; Z87.891 Personal history of nicotine dependence
CPT/HCPCS: 36415; 73620; 80053; 85025; 96372; 99283; A9270; J1885

== ENCOUNTER 2018-03-31 21:42 | Emergency (ER) | payer OTHER ==
--- NOTE | 2018-03-31 22:04 | EDM.PDOC ---
ED HPI GENERAL MEDICAL PROBLEM - General Chief Complaint: Skin Complaint Stated Complaint: INFECTION RT FOOT Time Seen by Provider: 03/31/18 22:04 Source of Information: Reports: Patient - History of Present Illness INITIAL COMMENTS - FREE TEXT/NARRATIVE: HISTORY AND PHYSICAL: History of present illness: 63-year-old female resenting to the emergency department with chief complaint of increasing redness to her right lower extremity with past medical history of sweets syndrome, pustular pyoderma gangrenosum, and rheumatoid neutrophilic dermatitis. Patient states that she has been treated recently with Augmentin 875-125 for 14 days for cellulites and ulcers or her left lower extremety. She's had problems with infections in the past in the right lower leg. States that she finished her 14 day course on Sunday of this last week and seemed to be doing fine. This morning she noticed that she was getting increase redness and some mild pain to her right lower extremity near the ulcerative lesions that she's had in the past. She came into the emergency department for further evaluation. She denies any associated fevers, chills, nausea, vomiting, or other signs of systemic infection. States that she came in secondary to concern that it may get worse overnight. She sees Dr. Gonzalez as her primary care physician and a dye weigher helper in [place] for her other comorbidities. Currently denies any chest pain, palpitations, shortness breath, syncopal episodes, focal neurologic deficits. States that the infection has been improving when she was on Augmentin. Review of systems: As per history of present illness and below otherwise all systems reviewed and negative. Past medical history: As per history of present illness and as reviewed below otherwise noncontributory. Surgical history: As per history of present illness and as reviewed below otherwise noncontributory. Social history: No reported history of drug or alcohol abuse. Family history: As per history of present illness and as reviewed below otherwise noncontributory. Physical exam: HEENT: Atraumatic, normocephalic, pupils reactive, negative for conjunctival pallor or scleral icterus, mucous membranes moist, throat clear, neck supple, nontender, trachea midline. Lungs: Clear to auscultation, breath sounds equal bilaterally, chest nontender. Heart: S1S2, regular, negative for clicks, rubs, or JVD. Abdomen: Soft, nondistended, nontender. Negative for masses or hepatosplenomegaly. Negative for costovertebral tenderness. Pelvis: Stable nontender. Genitourinary: Deferred. Rectal: Deferred. Extremities: Ulcerative lesions to the right lateral foot with mild erythema surrounding, there is a small 0.5 cm ulcerative lesion on the chin with mild surrounding erythema. Atraumatic, negative for cords or calf pain. Neurovascular unremarkable. Neuro: Awake, alert, oriented. Cranial nerves II through XII unremarkable. Cerebellum unremarkable. Motor and sensory unremarkable throughout. Exam nonfocal. Diagnostics: [] Therapeutics: Augmentin 875-125mg PO Impression: Cellulitis right lower extremity Plan: Patient seems to be doing well on her Augmentin previously. She has had multiple issues with infections in this extremity. I did refill her Augmentin and she is going to see Dr. Gonzalez her primary care physician tomorrow. She is also been a follow-up with her dye weigher helper in [place]. Patient was discharged in good condition with above prescription and instructions a follow- up with Dr. Gonzalez tomorrow. right foot Pain Score (Numeric/FACES): 8 - Related Data Allergies Allergy/AdvReac Type Severity Reaction Status Date / Time adalimumab [From Humira] Allergy Other Verified 03/31/18 21:57 amitriptyline Allergy Cannot Verified 03/31/18 21:57 Remember amlodipine [From Tribenzor] Allergy Cannot Verified 03/31/18 21:57 Remember cefaclor [From Ceclor] Allergy Hives Verified 03/31/18 21:57 ceftriaxone Allergy Pain Verified 03/31/18 21:57 codeine Allergy Hypertensio Verified 03/31/18 21:57 n doxycycline Allergy Hives Verified 03/31/18 21:57 etanercept [From Enbrel] Allergy Other Verified 03/31/18 21:57 gabapentin Allergy Hives Verified 03/31/18 21:57 hydrochlorothiazide Allergy Cannot Verified 03/31/18 21:57 [From Tribenzor] Remember hydroxychloroquine Allergy Cannot Verified 03/31/18 21:57 Remember ketorolac [From Toradol] Allergy Swelling Verified 03/31/18 22:04 leflunomide [From Arava] Allergy Cannot Verified 03/31/18 21:57 Remember lovastatin Allergy Cannot Verified 03/31/18 21:57 Remember olmesartan [From Tribenzor] Allergy Cannot Verified 03/31/18 21:57 Remember omeprazole Allergy Cannot Verified 03/31/18 21:57 Remember oxycodone Allergy Hypertensio Verified 03/31/18 21:57 n pantoprazole [From Protonix] Allergy Cannot Verified 03/31/18 21:57 Remember pravastatin Allergy Cannot Verified 03/31/18 21:57 Remember propoxyphene [From Darvon] Allergy Cannot Verified 03/31/18 21:57 Remember Sulfa (Sulfonamide Allergy Hives Verified 03/31/18 21:57 Antibiotics) tramadol Allergy Hypertensio Verified 03/31/18 21:57 n ustekinumab [From Stelara] Allergy Cannot Verified 03/31/18 21:57 Remember Home Meds: Home Meds predniSONE [Prednisone] 40 mg PO DAILY 06/17/16 [History] Albuterol [Ventolin HFA] 2 puff INH Q4HR 06/03/17 [History] Amoxicillin 500 mg PO DAILY 06/03/17 [History] Cetirizine [ZyrTEC] 10 mg PO DAILY PRN 06/03/17 [History] Cholecalciferol (Vitamin D3) [Vitamin D3] 5,000 units PO DAILY 06/03/17 [History ] Folic Acid 1 mg PO DAILY 06/03/17 [History] Lansoprazole [Prevacid] 15 mg PO DAILY 06/03/17 [History] Loratadine [Claritin] 10 mg PO ASDIRECTED PRN 06/03/17 [History] Famotidine 1 tab PO DAILY 03/31/18 [History] HYDROmorphone [Dilaudid] 2 mg PO Q4H PRN 03/31/18 [History] Leflunomide 1 tab PO DAILY 03/31/18 [History] Triamterene/Hydrochlorothiazid [Triamterene-HCTZ 37.5-25 MG] 1 tab PO DAILY 10/18 [History] diphenhydrAMINE [Benadryl] 1 cap PO Q6HR PRN 03/31/18 [History] Past Medical History HEENT History: Reports: Impaired Vision Other HEENT History: wears glasses Cardiovascular History: Reports: Hypertension Gastrointestinal History: Reports: None Genitourinary History: Reports: UTI, Recurrent [employer] History: Reports: Musculoskeletal History: Reports: Fibromyalgia, RA Immunologic History: Reports: Immunosuppression Other Oncologic History: never been diagnosed with cancer but reports right breast biopsy and left leg biopsy Dermatologic History: Reports: Psoriasis - Infectious Disease History Infectious Disease History: Reports: Chicken Pox, Measles, Mumps - Past Surgical History Other HEENT Surgeries/Procedures: nasal surgery Cardiovascular Surgical History: Reports: None GI Surgical History: Reports: Appendectomy Female Surgical History: Reports: Section, Hysterectomy, Tubal Ligation Musculoskeletal Surgical History: Reports: Knee Replacement Other Musculoskeletal Surgeries/Procedures:: fused ankle, left Oncologic Surgical History: Reports: None Social & Family History - Family History Family Medical History: Noncontributory - Tobacco Use Smoking Status *Q: Never Smoker - Caffeine Use Caffeine Use: Reports: Coffee Caffeine Use Comment: 1-2cups/day - Recreational Drug Use Recreational Drug Use: No ED ROS GENERAL - Review of Systems Review Of Systems: ROS reveals no pertinent complaints other than HPI. ED EXAM, SKIN/RASH Exam: See Below Course - Vital Signs Last Recorded V/S: Last Vital Signs Temp 97.8 F 03/31/18 21:42 Pulse 113 H 03/31/18 21:42 Resp 18 03/31/18 21:42 BP 187/106 H 03/31/18 21:42 Pulse Ox 94 L 03/31/18 21:42 Departure - Departure Time of Disposition: 22:53 Disposition: Home, Self-Care 01 Condition: Good Clinical Impression: Cellulitis Qualifiers: Site of cellulitis: extremity Site of cellulitis of extremity: lower extremity Laterality: right Qualified Code(s): L03.115 - Cellulitis of right lower limb - Discharge Information Referrals: PCP,None [Primary Care Provider] - Forms: ED Department Discharge Additional Instructions: My general discharge The following information is given to patients seen in the emergency department who are being discharged to home. This information is to outline your options for follow-up care. We provide all patients seen in our emergency department with a follow-up referral. The need for follow-up, as well as the timing and circumstances, are variable depending upon the specifics of your emergency department visit. If you don't have a primary care physician on staff, we will provide you with a referral. We always advise you to contact your personal physician following an emergency department visit to inform them of the circumstance of the visit and for follow-up with them and/or the need for any referrals to a consulting specialist. The emergency department will also refer you to a specialist when appropriate. This referral assures that you have the opportunity for follow-up care with a specialist. All of these measure are taken in an effort to provide you with optimal care, which includes your follow-up. Under all circumstances we always encourage you to contact your private physician who remains a resource for coordinating your care. When calling for follow-up care, please make the office aware that this follow-up is from your recent emergency room visit. If for any reason you are refused follow-up, please contact the [facility] Emergency Department at and asked to speak to the emergency department charge nurse. [address] [address] Follow-[address]. Gonzalez as we discussed. Be sure to tell them the nursing emergency department and they wish you to be seen soon as possible. Take medications as prescribed. We turned emergency department if any new or worsening symptoms.
[2018-03-31 23:06] VITALS: BP 167/104
== END 2018-03-31 23:05 | disposition home or self-care (01) ==
LOC: MW.ED 21:42
DX: L03.115 Cellulitis of right lower limb (principal); I10 Essential (primary) hypertension; Z88.8 Allergy status to other drugs, medicaments and biological substances; Z88.2 Allergy status to sulfonamides; Z88.5 Allergy status to narcotic agent; Z88.1 Allergy status to other antibiotic agents; Z79.899 Other long term (current) drug therapy; Z87.440 Personal history of urinary (tract) infections
CPT/HCPCS: 99283

== ENCOUNTER 2022-05-14 23:47 | Emergency (ER) | payer MEDICARE, OTHER | END 2022-05-15 01:27 | disposition left against medical advice (07) | LOC: MW.ED 23:47 | DX: Z53.21 Procedure and treatment not carried out due to patient leaving prior to being seen by health care provider (principal) | CPT/HCPCS: 93005; 93010 ==

== ENCOUNTER 2023-03-12 16:16 | Emergency (ER) | payer MEDICARE, OTHER ==
[2023-03-12] MEDS ORDERED: HYDROmorphone 1 MG/ML Syringe IVPUSH STA (16:44)
[2023-03-12] MEDS ORDERED: HYDROmorphone 2 MG/ML Syringe IVPUSH ONE (16:52)
[2023-03-12] MEDS ORDERED: HYDROmorphone 1 MG/ML Syringe IVPUSH ONE ×2 (16:54→17:06)
[2023-03-12 17:02] LABS: BASOPHILS PERCENT AUTO 0.1 % (0.0-1.5); EOSINOPHILS PERCENT AUTO 0.1 % (0.0-7.0); HEMATOCRIT 44.7 % (36.0-46.0); HEMOGLOBIN 14.7 g/dL (12.0-16.0); LYMPHOCYTES ABSOLUTE AUTO 1.8 K/uL (0.6-2.4); LYMPHOCYTES PERCENT AUTO 19.7 % (16.0-40.0); MEAN CORPUSCULAR HEMOGLOBIN 31.3 pg (27.0-32.0); MEAN CORPUSCULAR HGB CONC 32.9 g/dL (31.0-37.0); MEAN CORPUSCULAR VOLUME 95.3 fL (80.0-98.0); MONOCYTES ABSOLUTE AUTO 1.1 K/uL (0.0-0.8); MONOCYTES PERCENT AUTO 11.6 % (0.0-15.0); NEUTROPHILS ABSOLUTE AUTO 6.2 K/uL (1.4-5.7); NEUTROPHILS PERCENT AUTO 68.5 % (48.0-80.0); NRBC ABSOLUTE 0 K/uL; PLATELET COUNT,PLT 306 K/uL (150-400); RED BLOOD CELL COUNT 4.69 M/uL (4.30-5.90); WHITE BLOOD CELL COUNT,WBC 9.08 K/uL (4.0-11.0)
[2023-03-12 17:26] LABS: A/G RATIO 0.7 (0.9-1.6); ALBUMIN 3.2 g/dL (3.4-5.0); CALCIUM 9.3 mg/dL (8.5-10.1); CARBON DIOXIDE,CO2 26.1 mmol/L (21.0-32.0); EST CRCL DRUG DOSING (CG) 49.8 mL/min; POTASSIUM,K 3.6 mmol/L (3.5-5.1); PROTEIN TOTAL,TP 7.7 g/dL (6.4-8.2)
[2023-03-12 18:09] LABS: INR 1.07 (0.86-1.11)
[2023-03-12 19:09] VITALS: BP 165/99; PULSE 97
== END 2023-03-12 18:43 | disposition home or self-care (01) ==
LOC: MW.ED 16:16
DX: M79.661 Pain in right lower leg (principal); I70.92 Chronic total occlusion of artery of the extremities; I11.0 Hypertensive heart disease with heart failure; I50.30 Unspecified diastolic (congestive) heart failure; Z88.8 Allergy status to other drugs, medicaments and biological substances; Z88.1 Allergy status to other antibiotic agents; Z88.5 Allergy status to narcotic agent; Z88.2 Allergy status to sulfonamides
CPT/HCPCS: 36415; 80053; 85025; 85610; 96374; 96376; 99283; J1170